=== PATIENT | female | born 1970 | race Caucasian/White ===

== ENCOUNTER 2021-04-26 03:12 | Inpatient (IN) ==
[2021-04-26] MEDS ORDERED: Melatonin 3 MG TABLET PO PRN (06:10)
[2021-04-26] MEDS ORDERED: *HR* Promethazine 25 MG/ML VIAL IM PRN (06:10)
[2021-04-26] MEDS ORDERED: Naloxone 0.4 MG/ML INJ IVP PRN (06:10)
[2021-04-26] MEDS ORDERED: Acetaminophen 325 MG TABLET PO PRN (06:10)
[2021-04-26] MEDS ORDERED: Ondansetron 4 MG/2 ML VIAL IVP PRN (06:10)
[2021-04-26 07:33] LABS: INR 1.5; Prothrombin Time 16.6 Seconds (9.4-12.1)
[2021-04-26 07:41] LABS: Alanine Aminotransferase 24 Units/L (7-52); Albumin 2.3 g/dL (3.5-5.7); Albumin/Globulin Ratio 0.8 (1.1-2.2); Alkaline Phosphatase 67 Units/L (34-104); Aspartate Amino Transferase 41 Units/L (13-39); BUN/Creatinine Ratio 15 (6-26); Bilirubin,Total 1.6 mg/dL (0.3-1.0); Blood Urea Nitrogen 11 mg/dL (6-20); Calcium 7.1 mg/dL (8.6-10.3); Carbon Dioxide 25 mEq/L (23-29); Chloride 103 mEq/L (98-107); Globulin 2.9 g/dL (2.4-3.5); Glucose 109 mg/dL (70-105); Magnesium 1.5 mg/dL (1.6-2.6); Osmolality,Calculated 278 (280-300); Phosphorous 2.5 mg/dL (2.7-4.5); Potassium 3.4 mEq/L (3.5-5.1); Sodium 134 mEq/L (136-145); Total Protein 5.2 g/dL (6.4-8.9); eGFR For African Americans > 60 (> 60); eGFR For Non-African Americans > 60 (> 60)
[2021-04-26 08:18] LABS: Basophils # 0.1 K/mcL (0.0-0.2); Basophils % 0.6 %; Eosinophils # 0.7 K/mcL (0.0-0.6); Eosinophils % 8.3 %; Hematocrit 29.7 % (35.3-44.9); Hemoglobin 10.3 g/dL (11.5-15.4); Immature Granulocytes % 0.6 % (0-4); Lymphocytes # 1.5 K/mcL (0.6-4.6); Lymphocytes % 18.7 %; Mean Corpuscular Hemoglobin 32.6 pg (28.0-33.3); Mean Platelet Volume 9.7 fL (9.4-12.4); Monocytes # 1.4 K/mcL (0.0-1.3); Monocytes % 16.8 %; Neutrophils # 4.5 K/mcL (1.6-8.9); Platelet Count 87 K/mcL (140-400); Red Blood Count 3.16 M/mcL (3.82-4.97); Red Cell Distribution Width 17.1 % (11.5-14.5); White Blood Count 8.2 K/mcL (4.3-11.1)
[2021-04-26 08:22] LABS: Mean Corpuscular HGB Conc 34.7 g/dL (31.6-35.5)
[2021-04-26 08:25] LABS: Platelet Estimate Decreased (Normal)
[2021-04-26] MEDS ORDERED: Calcium Gluconate 1gm/50mL 1 GM/50 ML BAG IVPB ONE (09:25)
[2021-04-26] MEDS: Pantoprazole 40 MG VIAL IVP SCH (10:13)
[2021-04-26] MEDS: Furosemide 40 MG TABLET PO SCH (14:01)
[2021-04-26 14:31] LABS: % Iron Saturation 17 % (15-50); Iron 39 mcg/dL (50-170); Transferrin 160 mg/dL (203-362)
[2021-04-26 15:19] LABS: Hepatitis B Surface Antigen Nonreactive (Nonreactive)
[2021-04-26 15:49] LABS: Hepatitis B Core IgM Nonreactive (Nonreactive)
[2021-04-26 15:50] LABS: Hepatitis A Antibody IgM Nonreactive (Nonreactive)
[2021-04-26 18:53] LABS: Hepatitis C Virus Antibody Reactive (Nonreactive)
[2021-04-26 19:04] LABS: RBC,Peritoneal Fluid < 2000 RBC/mcL
[2021-04-26 19:16] LABS: Glucose,Peritoneal Fluid 118 mg/dL (No Ref Range); LDH,Peritoneal Fluid 45 Units/L (No Ref Range); Total Protein,Peritoneal Fluid < 2.0 g/dL
[2021-04-26 19:45] LABS: RBC,Peritoneal Fluid < 2000 RBC/mcL
[2021-04-26 20:57] LABS: Basophils,Peritoneal Fluid 0 %
[2021-04-26 21:07] LABS: Appearance of Peritoneal Fl CLEAR (Clear)
[2021-04-26 21:30] LABS: Basophils,Peritoneal Fluid 0 %; Eosinophils,Peritoneal Fluid 0 %
[2021-04-26 21:31] LABS: Appearance of Peritoneal Fl CLEAR (Clear)
[2021-04-27] MEDS: Furosemide 40 MG TABLET PO SCH (08:27)
[2021-04-27] MEDS: Pantoprazole 40 MG VIAL IVP SCH (08:27)
[2021-04-27 09:37] LABS: Basophils % 0.4 %; Eosinophils # 0.6 K/mcL (0.0-0.6); Eosinophils % 5.9 %; Hematocrit 30.5 % (35.3-44.9); Hemoglobin 11.2 g/dL (11.5-15.4); Immature Granulocytes % 0.7 % (0-4); Immature Platelets 2.5 % (1.1-6.1); Lymphocytes # 1.4 K/mcL (0.6-4.6); Lymphocytes % 14.2 %; Mean Corpuscular HGB Conc 36.7 g/dL (31.6-35.5); Mean Corpuscular Hemoglobin 36.6 pg (28.0-33.3); Mean Corpuscular Volume 99.7 fL (83.0-100.0); Mean Platelet Volume 9.7 fL (9.4-12.4); Monocytes # 1.6 K/mcL (0.0-1.3); Neutrophils # 6.2 K/mcL (1.6-8.9); Platelet Count 114 K/mcL (140-400); Red Blood Count 3.06 M/mcL (3.82-4.97); Red Cell Distribution Width 18.3 % (11.5-14.5); Segmented Neutrophils % 62.8 %; White Blood Count 9.8 K/mcL (4.3-11.1)
[2021-04-27 09:53] LABS: Alanine Aminotransferase 22 Units/L (7-52); Albumin 2.4 g/dL (3.5-5.7); Albumin/Globulin Ratio 0.7 (1.1-2.2); Alkaline Phosphatase 77 Units/L (34-104); Aspartate Amino Transferase 34 Units/L (13-39); BUN/Creatinine Ratio 16 (6-26); Bilirubin,Total 1.5 mg/dL (0.3-1.0); Blood Urea Nitrogen 13 mg/dL (6-20); Calcium 7.5 mg/dL (8.6-10.3); Carbon Dioxide 22 mEq/L (23-29); Chloride 104 mEq/L (98-107); Globulin 3.3 g/dL (2.4-3.5); Glucose 156 mg/dL (70-105); Magnesium 1.8 mg/dL (1.6-2.6); Osmolality,Calculated 277 (280-300); Phosphorous 2.5 mg/dL (2.7-4.5); Sodium 132 mEq/L (136-145); Total Protein 5.7 g/dL (6.4-8.9); eGFR For African Americans > 60 (> 60); eGFR For Non-African Americans > 60 (> 60)
[2021-04-27] MEDS ORDERED: *HR* LORazepam 0.5 MG TABLET PO PRN (15:03)
[2021-04-27] MEDS: Magnesium Oxide 400 MG TABLET PO SCH (16:15)
[2021-04-27] MEDS: rOPINIRole 1 MG TABLET PO SCH (19:56)
[2021-04-27] MEDS: ARIPiprazole 5 MG TABLET PO SCH (19:56)
[2021-04-28 03:07] LABS: Hemoglobin 10.5 g/dL (11.5-15.4); Red Cell Distribution Width 17.2 % (11.5-14.5)
[2021-04-28 03:09] LABS: Basophils % 0.4 %; Eosinophils # 0.6 K/mcL (0.0-0.6); Eosinophils % 7.5 %; Hematocrit 31.1 % (35.3-44.9); Immature Granulocytes % 0.6 % (0-4); Immature Platelets 2.6 % (1.1-6.1); Lymphocytes # 1.2 K/mcL (0.6-4.6); Lymphocytes % 14.4 %; Mean Corpuscular HGB Conc 33.8 g/dL (31.6-35.5); Mean Corpuscular Hemoglobin 32.9 pg (28.0-33.3); Mean Corpuscular Volume 97.5 fL (83.0-100.0); Monocytes # 1.3 K/mcL (0.0-1.3); Monocytes % 15.9 %; Platelet Count 105 K/mcL (140-400); Red Blood Count 3.19 M/mcL (3.82-4.97); Segmented Neutrophils % 61.2 %; White Blood Count 8.2 K/mcL (4.3-11.1)
[2021-04-28 03:18] LABS: INR 1.4
[2021-04-28 03:30] LABS: % Iron Saturation 16 % (15-50); Alanine Aminotransferase 20 Units/L (7-52); Albumin 2.4 g/dL (3.5-5.7); Albumin/Globulin Ratio 0.7 (1.1-2.2); Alkaline Phosphatase 70 Units/L (34-104); Aspartate Amino Transferase 29 Units/L (13-39); BUN/Creatinine Ratio 17 (6-26); Bilirubin,Total 1.4 mg/dL (0.3-1.0); Blood Urea Nitrogen 12 mg/dL (6-20); Calcium 7.7 mg/dL (8.6-10.3); Carbon Dioxide 24 mEq/L (23-29); Chloride 104 mEq/L (98-107); Globulin 3.3 g/dL (2.4-3.5); Glucose 143 mg/dL (70-105); Iron 38 mcg/dL (50-170); Magnesium 1.8 mg/dL (1.6-2.6); Osmolality,Calculated 278 (280-300); Phosphorous 2.7 mg/dL (2.7-4.5); Potassium 4.1 mEq/L (3.5-5.1); Sodium 133 mEq/L (136-145); Total Protein 5.7 g/dL (6.4-8.9); Transferrin 169 mg/dL (203-362); eGFR For African Americans > 60 (> 60); eGFR For Non-African Americans > 60 (> 60)
[2021-04-28 03:46] LABS: Ferritin 201 ng/mL (10-120)
[2021-04-28 03:52] LABS: Folate 11.3 ng/mL (3.0-16.0)
[2021-04-28] MEDS: Pantoprazole 40 MG VIAL IVP SCH (09:05)
[2021-04-28] MEDS: Multivit/Ca/Min/Fe/FA 1 TAB TABLET PO SCH (09:05)
[2021-04-28] MEDS: Magnesium Oxide 400 MG TABLET PO SCH (09:05)
[2021-04-28] MEDS: lisinopriL 20 MG TABLET PO SCH (09:05)
[2021-04-28] MEDS: Furosemide 40 MG TABLET PO SCH (09:05)
[2021-04-28] MEDS: Nicotine 14 MG PATCH.TD24 TD SCH (09:06)
[2021-04-28] MEDS ORDERED: Iron Sucrose Complex 400 MG in 0.9 % Sodium Chloride 250 ML IVPB ONE (18:49)
[2021-04-28] MEDS: ARIPiprazole 5 MG TABLET PO SCH (20:53)
[2021-04-28] MEDS: Calcium Gluconate 1gm/50mL 1 GM/50 ML BAG IVPB SCH ×2 (20:53→21:55)
[2021-04-28] MEDS: rOPINIRole 1 MG TABLET PO SCH (20:53)
[2021-04-29 05:38] LABS: Basophils # 0.1 K/mcL (0.0-0.2); Basophils % 0.8 %; Eosinophils # 0.4 K/mcL (0.0-0.6); Eosinophils % 6.5 %; Hematocrit 26.3 % (35.3-44.9); Hemoglobin 9.3 g/dL (11.5-15.4); Immature Granulocytes % 0.6 % (0-4); Lymphocytes # 1.3 K/mcL (0.6-4.6); Lymphocytes % 19.8 %; Mean Corpuscular HGB Conc 35.4 g/dL (31.6-35.5); Mean Corpuscular Hemoglobin 35.2 pg (28.0-33.3); Mean Corpuscular Volume 99.6 fL (83.0-100.0); Monocytes # 1.1 K/mcL (0.0-1.3); Monocytes % 16.8 %; Neutrophils # 3.7 K/mcL (1.6-8.9); Platelet Count 105 K/mcL (140-400); Red Blood Count 2.64 M/mcL (3.82-4.97); Red Cell Distribution Width 17.2 % (11.5-14.5); Segmented Neutrophils % 55.5 %; White Blood Count 6.7 K/mcL (4.3-11.1)
[2021-04-29 05:56] LABS: Alanine Aminotransferase 17 Units/L (7-52); Albumin 2.2 g/dL (3.5-5.7); Albumin/Globulin Ratio 0.8 (1.1-2.2); Alkaline Phosphatase 60 Units/L (34-104); Aspartate Amino Transferase 26 Units/L (13-39); BUN/Creatinine Ratio 17 (6-26); Bilirubin,Total 1.1 mg/dL (0.3-1.0); Blood Urea Nitrogen 12 mg/dL (6-20); Calcium 7.8 mg/dL (8.6-10.3); Carbon Dioxide 26 mEq/L (23-29); Chloride 103 mEq/L (98-107); Globulin 2.9 g/dL (2.4-3.5); Glucose 145 mg/dL (70-105); INR 1.6; Magnesium 1.6 mg/dL (1.6-2.6); Osmolality,Calculated 276 (280-300); Phosphorous 2.6 mg/dL (2.7-4.5); Potassium 4.2 mEq/L (3.5-5.1); Prothrombin Time 18.3 Seconds (9.4-12.1); Sodium 132 mEq/L (136-145); Total Protein 5.1 g/dL (6.4-8.9); eGFR For African Americans > 60 (> 60); eGFR For Non-African Americans > 60 (> 60)
[2021-04-29 07:11] LABS: AFP Tumor Marker Non-Pregnant 2 ng/mL (0-9)
[2021-04-29 07:19] LABS: ANA IgG by ELISA NONE DETECTED (None Detected); F-Actin (sm muscle) Ab IgG 10 Units (0-19)
[2021-04-29] MEDS: Pantoprazole 40 MG VIAL IVP SCH (08:54)
[2021-04-29] MEDS: lisinopriL 20 MG TABLET PO SCH (08:55)
[2021-04-29] MEDS: Magnesium Oxide 400 MG TABLET PO SCH (08:55)
[2021-04-29] MEDS: Multivit/Ca/Min/Fe/FA 1 TAB TABLET PO SCH (08:55)
[2021-04-29] MEDS: Furosemide 40 MG TABLET PO SCH (08:55)
[2021-04-29] MEDS: Nicotine 14 MG PATCH.TD24 TD SCH (08:56)
[2021-04-29] MEDS ORDERED: PAROXETINE HCL 40 MG PO SCH (09:00)
[2021-04-29] MEDS ORDERED: PARoxetine 10 MG TABLET PO SCH (09:00)
[2021-04-29] MEDS ORDERED: PARoxetine 20 MG TABLET PO SCH (09:00)
[2021-04-29] MEDS ORDERED: PARoxetine 30 MG TABLET PO SCH (09:00)
[2021-04-29 10:23] LABS: Tissue Transglutaminase IgA <2 U/mL (0-3)
[2021-04-29 10:48] VITALS: BP 104/68
[2021-04-29 22:50] LABS: Fluid Source for Albumin PERITONEAL FL.
[2021-04-30 09:44] LABS: Saccharomyces cerevisiae IgA 24.2 Units (0.0-24.9)
[2021-04-30 12:06] LABS: HCV Quant Interpretation DETECTED (Not Detected); HCV Quant Log 2.79 log IU/mL
[2021-05-01 00:41] LABS: Alpha 2 Globulin (PEP) 0.55 g/dL (0.48-1.05); Beta Globulin (PEP) 0.71 g/dL (0.48-1.10)
[2021-05-01 09:55] LABS: IFE Reflexed NOT DONE
== END 2021-04-29 14:17 | DRG 280 ==
LOC: 3BNU → SUATTDRO 05:14
PROVIDERS: ADMIT Internal Medicine; ATTEND Internal Medicine

== ENCOUNTER 2021-04-29 14:21 | Observation (INO) ==
[2021-04-29] MEDS ORDERED: Haloperidol Lactate 5 MG/ML VIAL IM PRN (14:45)
[2021-04-29] MEDS ORDERED: Nicotine 2 MG GUM BC PRN (14:45)
[2021-04-29] MEDS ORDERED: haloperidoL 5 MG TABLET PO PRN (14:45)
[2021-04-29] MEDS ORDERED: traZODone 50 MG TABLET PO PRN (14:45)
[2021-04-29] MEDS ORDERED: hydrOXYzine pamoate 25 MG CAPSULE PO PRN (14:45)
[2021-04-29] MEDS ORDERED: *HR* LORazepam 2 MG/ML VIAL IM PRN (14:45)
[2021-04-29] MEDS ORDERED: Mag Hydrox/Al Hydrox/Simeth 30 ML UDC PO PRN (14:45)
[2021-04-29] MEDS ORDERED: Ibuprofen 400 MG TABLET PO PRN (14:45)
[2021-04-29] MEDS ORDERED: MOM Conc 10 ML UD.LIQ PO PRN (14:45)
[2021-04-29] MEDS ORDERED: Acetaminophen/Butalbital/CaffeineTABLET PO PRN (14:56)
[2021-04-29] MEDS: ARIPiprazole 5 MG TABLET PO SCH (21:51)
[2021-04-30] MEDS: PARoxetine 10 MG TABLET PO SCH (10:01)
[2021-04-30] MEDS: lisinopriL 20 MG TABLET PO SCH (10:01)
[2021-04-30] MEDS: PARoxetine 20 MG TABLET PO SCH (10:01)
[2021-04-30] MEDS: Magnesium Oxide 400 MG TABLET PO SCH (10:02)
[2021-04-30] MEDS: Furosemide 40 MG TABLET PO SCH (10:02)
[2021-04-30] MEDS: Multivit/Ca/Min/Fe/FA 1 TAB TABLET PO SCH (10:02)
[2021-04-30] MEDS: ARIPiprazole 5 MG TABLET PO SCH (20:37)
[2021-05-01] MEDS: Multivit/Ca/Min/Fe/FA 1 TAB TABLET PO SCH (09:22)
[2021-05-01] MEDS: PARoxetine 20 MG TABLET PO SCH (09:22)
[2021-05-01] MEDS: Magnesium Oxide 400 MG TABLET PO SCH (09:22)
[2021-05-01] MEDS: Furosemide 40 MG TABLET PO SCH (09:23)
[2021-05-01] MEDS: PARoxetine 10 MG TABLET PO SCH (09:23)
[2021-05-01] MEDS: lisinopriL 20 MG TABLET PO SCH (09:23)
[2021-05-01] MEDS: ARIPiprazole 5 MG TABLET PO SCH (20:27)
[2021-05-02 09:31] VITALS: BP 133/81
[2021-05-02] MEDS: PARoxetine 20 MG TABLET PO SCH (09:41)
[2021-05-02] MEDS: Multivit/Ca/Min/Fe/FA 1 TAB TABLET PO SCH (09:41)
[2021-05-02] MEDS: Magnesium Oxide 400 MG TABLET PO SCH (09:41)
[2021-05-02] MEDS: lisinopriL 20 MG TABLET PO SCH (09:42)
[2021-05-02] MEDS: PARoxetine 10 MG TABLET PO SCH (09:42)
[2021-05-02] MEDS: Furosemide 40 MG TABLET PO SCH (09:42)
== END 2021-05-02 15:05 | disposition home or self-care (01) ==
LOC: 1ANU 14:21 → INTOOBSV 14:21
PROVIDERS: ADMIT Psychiatry & Neurology Psychiatry; ATTEND Psychiatry & Neurology Psychiatry